=== PATIENT | female | born 1965 | race Caucasian/White ===

== ENCOUNTER → 2016-05-28 | Outpatient (CLI) | payer BC ==
--- NOTE | 2016-05-28 18:03 | Diagnostic Imaging Report ---
EXAMINATION: Transabdominal and transvaginal pelvic ultrasound. INDICATION: Abnormal uterine bleeding. FINDINGS: The uterus is 9.7 x 5.1 x 5 cm. The endometrial stripe is 4 mm in caliber. The myometrium is slightly heterogenous with no discrete lesion seen. The ovaries are obscured by bowel gas. IMPRESSION: Slightly heterogenous myometrium with no discrete lesion. Dictated by: Dictated on workstation # [id number]
== END ==
LOC: RAD 16:18
PROVIDERS: ATTEND Nurse Practitioner
DX: N93.8 Other specified abnormal uterine and vaginal bleeding (principal); N92.0 Excessive and frequent menstruation with regular cycle; N94.6 Dysmenorrhea, unspecified
CPT/HCPCS: 76830; 76856

== ENCOUNTER → 2016-06-30 | Outpatient (CLI) | payer BC ==
--- OUTSIDE RECORDS SUMMARY | 2016-06-30 13:53 | XMS REPORT | Continuity of Care Document ---
Author Author [facility] Organization [facility] Address Unknown Phone Unavailable Allergies Active Description Code Type Severity Reaction Onset Reported/Identified Relationship to Patient Clinical Status Yes No Known Drug Allergies [id number] Drug Allergy Unknown N/ A 10/03/2010 Medications Problems Date Dx Coded Attending Type Code Diagnosis Diagnosed By 01/01/2012 Ot 414.01 CORONARY ATHEROSCLEROSIS OF [place] CORON 01/01/2012 Ot 780.79 OTH MALAISE FATIGUE 01/01/2012 Ot 786.59 CHEST PAIN NEC 01/01/2012 Ot 794.30 ABN CARDIOVASC STUDY NOS 01/01/2012 Ot V17.49 FAMILY HISTORY OF OTHER CARDIOVASCULAR D 04/24/2014 [facility] Ot 611.72 04/04/2015 Ot V76.12 04/04/2015 Ot 789.04 04/04/2015 Ot 620.2 04/04/2015 Ot 621.30 04/04/2015 Ot 789.04 04/04/2015 Ot 620.2 04/04/2015 Ot 455.0 04/04/2015 Ot 455.3 04/04/2015 Ot 620.2 04/04/2015 Ot 611.1 04/04/2015 Ot 786.50 04/04/2015 Ot V17.3 04/04/2015 Ot 786.50 04/04/2015 Ot V17.3 04/04/2015 Ot V76.12 04/04/2015 Ot 610.0 04/04/2015 [facility] Ot 621.2 04/04/2015 [facility] [place] [facility] Ot 625.3 04/04/2015 [facility] [place] [facility] Ot 793.82 04/04/2015 [facility] [place] [facility] Ot V76.12 04/04/2015 [facility] [place] [facility] Ot 610.0 04/04/2015 [facility] Ot 793.82 04/04/2015 [facility] [place] [facility] Ot 621.2 04/04/2015 QUICK, GO APONTEP Ot 611.72 04/08/2015 Ot V76.12 04/08/2015 Ot 789.04 04/08/2015 Ot 620.2 04/08/2015 Ot 621.30 04/08/2015 Ot 789.04 04/08/2015 Ot 620.2 04/08/2015 Ot 455.0 04/08/2015 Ot 455.3 04/08/2015 Ot 620.2 04/08/2015 Ot 611.1 04/08/2015 Ot 786.50 04/08/2015 Ot V17.3 04/08/2015 Ot 786.50 04/08/2015 Ot V17.3 04/08/2015 Ot V76.12 04/08/2015 Ot 610.0 04/08/2015 QUICK, [facility] Ot 621.2 04/08/2015 QUICK, [facility] Ot 625.3 04/08/2015 QUICK, [facility] Ot 793.82 04/08/2015 QUICK, GO APONTEP Ot V76.12 04/08/2015 QUICK, [facility] Ot 610.0 04/08/2015 QUICK, [facility] Ot 793.82 04/08/2015 QUICK, GO APONTEP Ot 621.2 04/08/2015 QUICK, [facility] Ot 611.72 04/23/2015 QUICK, [facility] Ot Z12.31 05/28/2016 Ot 620.2 OVARIAN CYST NEC/NOS 05/28/2016 Ot 611.1 HYPERTROPHY OF BREAST 05/28/2016 Ot 786.50 CHEST PAIN NOS 05/28/2016 Ot V17.3 FAM HX-[facility] HEART DIS 05/28/2016 Ot 786.50 CHEST PAIN NOS 05/28/2016 Ot V17.3 FAM HX-[place] HEART DIS 05/28/2016 Ot V76.12 OTH SCREEN MAMMO-MALIGN NEOPLASM OF BEAN 05/28/2016 Ot 610.0 SOLITARY CYST OF BREAST 05/28/2016 QUICK, [facility] Ot 621.2 HYPERTROPHY OF UTERUS 05/28/2016 QUICK, [facility] Ot 625.3 DYSMENORRHEA 05/28/2016 QUICK, [facility] Ot 793.82 INCONCLUSIVE MAMMOGRAM 05/28/2016 [facility] Ot V76.12 OTH SCREEN MAMMO-MALIGN NEOPLASM OF BEAN 05/28/2016 [facility] Ot 610.0 SOLITARY CYST OF BREAST 05/28/2016 [facility] Ot 793.82 INCONCLUSIVE MAMMOGRAM 05/28/2016 [facility] Ot 621.2 HYPERTROPHY OF UTERUS 05/28/2016 [facility] Ot 611.72 LUMP OR MASS IN BREAST 05/28/2016 [facility] Ot Z12.31 ENCNTR SCREEN MAMMOGRAM FOR MALIGNANT NE 05/29/2016 [facility] Ot N92.0 EXCESSIVE AND FREQUENT MENSTRUATION WITH 05/29/2016 [facility] Ot N93.8 OTHER SPECIFIED ABNORMAL UTERINE AND VAG 05/29/2016 [facility] Ot N94.6 DYSMENORRHEA, UNSPECIFIED 06/11/2016 [facility] Ot N92.0 EXCESSIVE AND FREQUENT MENSTRUATION WITH 06/11/2016 [facility] Ot N93.8 OTHER SPECIFIED ABNORMAL UTERINE AND VAG 06/11/2016 [facility] Ot N94.6 DYSMENORRHEA, UNSPECIFIED Procedures Results Encounters ACCT No. Visit Date/Time Discharge Status Pt. Type Provider Facility Loc./Unit Complaint [id number] 04/04/2014 10:18:00 2013 23:59:59 CLS Outpatient KATEYNITZAAditya [facility] RAD BREAST MASS [id number] 03/27/2013 12:21:00 2012 23:59:59 CLS Outpatient [facility]ATEY [facility] RAD ABNORMAL MAMMO [id number] 03/23/2013 09:10:00 2012 23:59:59 CLS Outpatient [facility] RAD HYPERTROPHY OF UTERUS [id number] 03/10/2013 10:22:00 2012 23:59:59 CLS Outpatient [facility] RAD SCRENNING,MENORRHALGIA [id number] 05/28/2016 16:18:00 ACT Outpatient NITZA DEL [facility] Karthik EDWARD [facility] RAD DUB,MENORRHAGIA,DYSMENORRHEA [id number] 04/08/2015 10:33:00 ACT Outpatient KATEYNITZAAditya LEON [facility] RAD SCREENING [id number] 03/22/2012 07:30:00 Document Registration [id number] 03/08/2012 11:33:00 Document Registration [id number] 01/01/2012 09:34:00 Document Registration [id number] 12/29/2011 11:11:00 Document Registration [id number] 12/07/2011 12:14:00 Document Registration [id number] 02/25/2011 07:59:00 Document Registration [id number] 01/15/2011 11:49:00 Document Registration [id number] 10/03/2010 09:02:00 Document Registration [id number] 09/19/2010 12:06:00 Document Registration [id number] 2010 07:48:00 Document Registration [id number] 09/01/2010 12:47:00 Document Registration [id number] 02/21/2010 07:30:00 Document Registration
--- NOTE | 2016-07-02 19:52 | Diagnostic Imaging Report ---
Bilateral screening mammogram The current study was also evaluated with a Computer Aided Detection (CAD) system. Indication: Screening. No current complaints stated on the questionnaire. COMPARISON: 04/08/15. FINDINGS: The breasts are composed of heterogeneously dense parenchyma which may decrease mammographic sensitivity. There is a circumscribed mass seen in the central upper aspect of the left breast slightly more prominent in the current mammogram in comparison to the 2015 exam but is decreased in size from 2014. There is also another circumscribed nodule stable from multiple prior exams in the inferior aspect of the left breast. These are compatible with cysts as confirmed with previous ultrasound. The right breast demonstrates no definite change. IMPRESSION: Nodules in the left breast demonstrate minimal changes from multiple prior exams with previously documented cysts on prior left breast ultrasounds. The circumscribed margins are consistent with a cyst as well with no definite suspicious mass seen. Dense breasts. ACR BI-RADS Category 2: Benign findings. Result letter will be mailed to the patient. Note: At least 10% of breast cancer is not imaged by mammography. Dictated by: Dictated on workstation # [id number]
== END ==
LOC: RAD 13:50
PROVIDERS: ATTEND Nurse Practitioner
DX: Z12.31 Encounter for screening mammogram for malignant neoplasm of breast (principal)
CPT/HCPCS: 77067

== ENCOUNTER 2016-09-04 12:20 | Outpatient (CLI) | payer BC ==
[~2016-09-04] VITALS: Ht 170.2 cm; Wt 75.3 kg
[2016-09-04 12:28] VITALS: BP 126/73
[2016-09-04 13:01] LABS: BASOPHILS % (AUTO) 1 % (0-10); EOSINOPHILS # (AUTO) 0.2 10^3/uL (0.0-0.3); EOSINOPHILS % (AUTO) 4 % (0-10); LYMPHOCYTES # (AUTO) 2.3 X 10^3 (1.0-4.0); LYMPHOCYTES % (AUTO) 39 % (12-44); MEAN CORPUSCULAR HEMOGLOBIN 29 PG (25-34); MEAN CORPUSCULAR HGB CONC 34 G/DL (32-36); MEAN CORPUSCULAR VOLUME 86 FL (80-99); MEAN PLATELET VOLUME 11.6 FL (7.4-10.4); MONOCYTES # (AUTO) 0.4 X 10^3 (0.0-1.0); MONOCYTES % (AUTO) 7 % (0-12); NEUTROPHILS # (AUTO) 2.8 X 10^3 (1.8-7.8); NEUTROPHILS % (AUTO) 49 % (42-75); PLATELET COUNT 222 10^3/uL (130-400); RED BLOOD COUNT 4.59 10^6/uL (4.35-5.85); RED CELL DISTRIBUTION WIDTH 14.2 % (10.0-14.5); WHITE BLOOD COUNT 5.8 10^3/uL (4.3-11.0)
== END 2016-09-04 12:40 | disposition home or self-care (01) ==
LOC: PREOP 12:20
PROVIDERS: ATTEND Obstetrics & Gynecology
DX: Z01.812 Encounter for preprocedural laboratory examination (principal); Z11.2 Encounter for screening for other bacterial diseases; N92.0 Excessive and frequent menstruation with regular cycle
CPT/HCPCS: 36415; 85025; 86850; 86900; 86901; 87081

== ENCOUNTER 2016-09-09 06:00 | Day surgery (SDC) | payer BC ==
[~2016-09-09] VITALS: Ht 170.2 cm; Wt 75.3 kg
[2016-09-09 06:20] VITALS: BP 121/70
[2016-09-09] MEDS ORDERED: MIDAZOLAM 2 MG/2 ML (VERSED) VIAL ONE (06:55)
[2016-09-09] MEDS ORDERED: ROCURONIUM 50 MG/5 ML (ZEMURON) VIAL IV ONE (06:55)
[2016-09-09] MEDS ORDERED: fentaNYL INJECTION 100 MCG/2 ML AMP ONE ×2 (06:55→09:04)
[2016-09-09] MEDS ORDERED: proPOfol 200 MG/20 ML (DIPRIVAN) VIAL IV ONE (06:55)
[2016-09-09] MEDS: LACTATED RINGERS 1,000 ML IV PRN ×2 (07:34→09:13)
[2016-09-09] MEDS ORDERED: BUP/EPI 0.25% 1:200,000 (MARCAINE) 30 ML VIAL ONE (07:36)
--- NOTE | 2016-09-09 07:42 | Progress Note-Pre Operative ---
Pre-Operative Progress Note H&P Reviewed The H&P was reviewed, patient examined and no changes noted. Date H&P Reviewed: September 09, 2016 Time H&P Reviewed: 07:40 Pre-Operative Diagnosis: Abnormal uterine bleeding, menorrhagia, ovarian cancer risk reduction SHANA YU MD September 09, 2016 07:42
[2016-09-09] MEDS ORDERED: IBUP-1773 PO (07:43)
[2016-09-09] MEDS ORDERED: HYDR-3729 PO (07:43)
[2016-09-09] MEDS ORDERED: DOCU-143 PO (07:43)
--- NOTE | 2016-09-09 07:45 | Discharge Inst-Women's Service ---
Discharge Inst-Women's Serv Depart Medication/Instructions New, Converted or Re-Newed RX: RX on Chart (and transmitted to pharmacy) Final Diagnosis Abnormal uterine bleeding, menorrhagia, ovarian cancer risk reduction Consults/Follow Up Additional Follow Up: Yes Orders/Referrals 2-[address] Carolina Activity Driving Instructions: No Driving for 24 Hours (or while taking narcotic pain medications) NO SMOKING: NO SMOKING Nothing Inside Vagina: No Douching, No Gans, No Tampons Other Activity No strenuous activity or lifting > 10 lb for 2 weeks No sex, douching, tampons, anything in the vagina for one week Diet Discharge Diet: No Restrictions Symptoms to Report to DrMelissa: Bleeding Excessive, Pain Increased, Fever Over 101 Degrees F, Pain/Pressure in Chest, Vaginal Bleeding Increase, Dizziness/Fainting , Nausea/Vomiting, Shortness of Breath For Any Problems or Questions: Contact Your Physician, Go to Emergency Room Skin/Wound Care Infection Signs and Symptoms: Increased Redness, Foul Odor of Wound, Increased Drainage Operative Area Clean and Dry: Keep Incision Clean/Dry Stitches/[place]/Dermabond: Dermabond, Care of Stitches Bathing Instructions: SHANA Han MD September 09, 2016 07:45
[2016-09-09] MEDS ORDERED: LACTATED RINGERS 2,000 ML IV ONE (08:56)
[2016-09-09] MEDS ORDERED: SEVOFLURANE (ULTANE) 15 ML INHAL SOLN ONE (08:56)
[2016-09-09] MEDS ORDERED: KETOROLAC 30 MG/ML VIAL ONE (08:56)
[2016-09-09] MEDS ORDERED: ONDANSETRON 4 MG/2 ML (SDV) Z0FRAN ONE (08:56)
[2016-09-09] MEDS ORDERED: D5 LR IV SOLUTION 1,000 ML IV SCH (09:13)
--- NOTE | 2016-09-09 09:13 | Progress Note-Post Operative ---
Post-Operative Progess Note Surgeon (s)/Hotbed Operator (s) Surgeon SHANA YU MD Hotbed Operator: Deja Causey APRN who was necessary for the procedure for retraction Pre-Operative Diagnosis Abnormal uterine bleeding, menorrhagia, ovarian cancer risk reduction Post-Operative Diagnosis Same plus right ovarian cyst Procedure & Operative Findings Date of Procedure 09/09/16 Procedure Performed/Findings Operative laparoscopy, right oophorectomy, bilateral salpingectomy, hysteroscopy , Novasure endometrial ablation Anesthesia Type General Estimated Blood Loss Estimated blood loss (mL): Minimal Specimens/Packing Specimens Removed Bilateral tubes, right ovary, endometrial curettings to pathology SHANA YU MD September 09, 2016 09:13
[2016-09-09] MEDS ORDERED: ONDANSETRON 4 MG/2 ML (SDV) Z0FRAN IVP PRN ×2 (09:15→09:30)
[2016-09-09] MEDS ORDERED: HYDROmorphone (DILAUDID) 2 MG/ML VIAL IVP PRN (09:30)
[2016-09-09] MEDS ORDERED: morphine INJ 10 MG/ML 1ML (SYR OR VIAL) ONE (09:40)
[2016-09-09] MEDS: morphine INJ 10 MG/ML 1ML (SYR OR VIAL) IVP PRN ×2 (09:45→09:51)
--- NOTE | 2016-09-09 10:05 | OB/GYN Operative Report ---
Operative Report Date of Procedure: September 09, 2016 Preoperative Diagnosis: Abnormal uterine bleeding, menorrhagia, ovarian cancer risk reduction Postoperative Diagnosis: Same plus right ovarian cyst Procedure: Operative laparoscopy, right oophorectomy, bilateral salpingectomy, hysteroscopy, Novasure endometrial ablation Surgeon: Shana Carolina MD Assistants: Deja Causey APRN who was vital to the case for retraction of srivastava structures Anesthesia: General Estimated Blood Loss: Minimal Indications for Procedure: This is a 51 year old female with abnormal uterine bleeding (menorrhagia) who also desired ovarian cancer risk reduction. She was counseled on risks/benefits and alternatives. After normal ultrasound and endometrial biopsy, she elected to proceed. Findings: Normal appearing liver, stomach, bowel, bladder. 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 Right ovary with small (<1cm) calcified cyst. Bilateral tubes normal in appearance. No evidence of perforation following ablation. Fluid deficit of 240 mL of NS following ablation. Procedure: The patient was brought to the operating room. The patient was placed under general anesthesia by our anesthesia colleagues. A time out was performed. The patient was positioned in dorsal lithotomy with the use of stirrups. She was prepped and draped in the typical sterile fashion. A speculum was placed in the vagina. A single toothed tenaculum was placed on the anterior lip of the cervix. A coned canula was placed in the external os. A mejia catheter was placed in the bladder. Gloves were then changed and the attention was turned to the abdomen. An infraumbilical incision was made with a knife following injection of 0.25% marcaine and the Veress needle was introduced into the peritoneal cavity with an opening pressure of 4 mmHg. The abdomen was then insufflated to a pressure of 15 mm Hg with CO2 gas. The camera was introduced into the abdomen, confirming intraperitoneal placement and lack of operative injury to the stomach , bowel, vessels or omentum. One additional 5 mm port site was placed in the left lower quadrant under direct visualization, 2cm medial and 2 cm superior to the anterior superior iliac spine. We then turned our attention to the pelvis. The aforementioned findings were noted. I began the salpingectomy on the left, grasping the left tube for traction and using the ligasure device to perform a salpingectomy in the distal to proximal direction, ligating the tube finally at the cornua. The left ovary appeared normal. The tube was removed intact. I noted a right ovarian cyst and decided to proceed with right oophorectomy. The ureter was identified low in the pelvis. The right infundibulopelvic ligament was isolated and coagulated and transected, and the dissection was continued proximally until removing the tube at the cornua. The left trochar site was extended to 12 mm Hg and an endocatch bag was placed in the pelvis. The specimen was removed intact. The suction teacher dramatics was used to irrigate the pelvis; good hemostasis was noted. We then turned our attention to the vagina. The uterine manipulator was removed from the uterus. The uterus was sounded to 10cm. Patel dilators were used to dilate the cervix to 17mm. The Truclear 5 mm hysteroscope was then advanced into the uterine cavity under direct visualization. No intrinsic lesions were seen. The hysteroscope was removed. A sharp circumferential curettage was performed with a small sharp curette. The Novasure Suresound Uterine Sound was then utilized to measure the cervical length of 4cm and cavity length of 6cm. The Novasure device was then placed in the uterine cavity, and, once at the fundus, was retracted 5mm and the device was deployed. The device was rotated clockwise and counterclockwise until a stable cavity width of 3.4cm was noted. The cavity assessment was then undertaken and, once successfully completed, the Novasure device was utilized at a power of 116 for less than two minutes total. The device was then retracted and removed from the vagina. The hysteroscope was again utilized to view the cavity which appeared adequately ablated. All instruments were removed from the vagina; the anterior lip of the cervix was hemostatic after Allis removal. Gloves were changed. The camera was directed into the abdominal cavity again. Good hemostasis was again noted; no evidence of perforation. The Yousif Rich was used to close the left lower quadrant port site with 0-Vicryl. The gas was allowed to escape the abdomen. All ports were then removed from the abdomen under direct visualization and then finally the camera port was removed. The port sites were closed using dermabond. All instruments were removed from the vagina. The patient was brought to the recovery room in stable condition after awakening from general anesthesia. Sponge, lap and needle counts were correct x 3. Condition: Stable to recovery room SHANA CAROLINA MD September 09, 2016 10:05
[2016-09-09 10:15] VITALS: BP 113/65
[2016-09-09] MEDS ORDERED: HYDROcodone/APAP 5 MG/325 MG (LORTAB) TAB PO PRN (10:30)
[2016-09-09 10:45] VITALS: BP 112/61
[2016-09-09 11:15] VITALS: BP 106/58
== END 2016-09-09 12:05 | disposition home or self-care (01) ==
LOC: SDC 06:00
PROVIDERS: ATTEND Obstetrics & Gynecology
DX: N92.0 Excessive and frequent menstruation with regular cycle (principal); N80.3 Endometriosis of pelvic peritoneum; N83.291 Other ovarian cyst, right side; N84.1 Polyp of cervix uteri
CPT/HCPCS: 84703; 88305

== ENCOUNTER → 2017-07-13 | Outpatient (CLI) | payer BC ==
[~2017-07-13] MED LIST: DOCU-143 PO; HYDR-3729 PO; IBUP-1773 PO
--- NOTE | 2017-07-13 12:42 | Diagnostic Imaging Report ---
INDICATION: Routine screening. Comparison is made with prior mammogram from 06/30/2016 and 04/08/2015. The current study was also evaluated with a Computer Aided Detection (CAD) system. Both breasts are heterogeneously dense, limiting the sensitivity of mammography. The overall parenchymal pattern appears to be fairly stable. The previously seen rounded mass in the left breast just lateral to the nipple line on CC view has resolved consistent with resolving cyst. Nodular density in the inferior and slightly medial left breast is stable. No new mass is detected. No suspicious microcalcifications are seen. The axillae are unremarkable. IMPRESSION: BI-RADS category 2 No mammographic features suspicious for malignancy are identified. ACR BI-RADS Category 2: Benign findings. Result letter will be mailed to the patient. Note: At least 10% of breast cancer is not imaged by mammography. Dictated by: Dictated on workstation # [id number]
== END ==
LOC: RAD 08:13
PROVIDERS: ATTEND Nurse Practitioner
DX: Z12.31 Encounter for screening mammogram for malignant neoplasm of breast (principal)
CPT/HCPCS: 77067

== ENCOUNTER → 2018-04-13 | Outpatient (CLI) | payer BC ==
--- NOTE | 2018-04-13 13:03 | Diagnostic Imaging Report ---
PROCEDURE: MRI left upper extremity without contrast. TECHNIQUE: Multiplanar, multisequence non contrast-enhanced MRI of the left upper extremity was accomplished. INDICATION: Injury to the left thumb left thumb pain. FINDINGS: An oil marker was placed at the area of pain in left thumb. This corresponds to the first MTP joint. The marrow signal intensity of the first met carpal as well as the proximal and distal phalanges appears normal. No definite marrow edema or fracture is seen. The flexor and extensor tendons of the thumb appear to be intact. There appears to be minimal edema adjacent to the first MCP joint along the ulnar side at the area of patient's pain. There appears to be some signal associated with the collateral ligament as well which is not well seen at the phalangeal attachment and could be torn. The collateral ligament along the radial side appears to be intact. Collateral ligaments at the interphalangeal joint appear intact. No other abnormality is seen. IMPRESSION: Findings suspicious for a collateral ligament injury at the first MCP joint, ulnar side, as described. No other abnormality is seen. Dictated by: Dictated on workstation # [id number]
== END ==
LOC: RAD 11:46
PROVIDERS: ATTEND Orthopaedic Surgery
DX: S53.32XA Traumatic rupture of left ulnar collateral ligament, initial encounter (principal)
CPT/HCPCS: 73221

== ENCOUNTER → 2018-11-02 | Outpatient (CLI) | payer BC ==
--- NOTE | 2018-11-02 10:35 | Diagnostic Imaging Report ---
INDICATION: Routine screening. COMPARISON: 07/13/2017 and 06/30/2016. TECHNIQUE: 2D and 3D bilateral screening mammography was performed with CAD. FINDINGS: Both breasts remain heterogeneously dense, limiting the sensitivity of mammography. The nodular density in the retroareolar and medial left breast is stable. No new mass or malignant appearing microcalcifications are seen. The axillae are unremarkable. IMPRESSION: No mammographic features suspicious for malignancy are identified. ACR BI-RADS Category 2: Benign findings. Result letter will be mailed to the patient. Note: At least 10% of breast cancer is not imaged by mammography. Dictated by: Dictated on workstation # [id number]
== END ==
LOC: RAD 07:32
PROVIDERS: ATTEND Nurse Practitioner
DX: Z12.31 Encounter for screening mammogram for malignant neoplasm of breast (principal); Z01.419 Encounter for gynecological examination (general) (routine) without abnormal findings; N95.2 Postmenopausal atrophic vaginitis
CPT/HCPCS: 77067

== ENCOUNTER → 2019-03-15 | Outpatient (CLI) | payer BC ==
--- NOTE | 2019-03-15 13:38 | Diagnostic Imaging Report ---
PROCEDURE: CT abdomen and pelvis without contrast. TECHNIQUE: Multiple contiguous axial images were obtained through the abdomen and pelvis without the use of intravenous contrast. Auto Exposure Controls were utilized during the CT exam to meet ALARA standards for radiation dose reduction. INDICATION: Hematuria. COMPARISON: None. FINDINGS: Included portions of the lung bases show multiple micronodular densities within the inferior lingula of the left upper lobe. Largest of these measures 7 mm in diameter (image 4, series 2). CT ABDOMEN: Small bowel loops are nondistended. Normal appendix is identified. Hypodense left renal cyst is noted. Otherwise, the kidneys, adrenal glands, spleen, pancreas, and liver have an unremarkable noncontrast CT appearance. There is no loculated fluid collection, free fluid, nor free air within the abdomen. No abnormal mesenteric or retroperitoneal adenopathy is seen. Osseous structures show no acute abnormalities. CT PELVIS: Urinary bladder is unopacified and nondistended. There is no loculated fluid collection, free fluid, nor free air within the pelvis. No abnormal adenopathy is seen. Osseous structures show no acute abnormalities. IMPRESSION: 1. Unremarkable noncontrast CT of the abdomen and pelvis. 2. Left lingular micronodules, which are new since previous exam. Please see below for follow-up recommendations. PULMONARY NODULE FOLLOW-UP Multiple nodules: <6 mm: * Low risk patient - no routine follow up * High risk patient - optional CT at 12 months 6-8 mm in size: * Low risk patient - Ct at 3-6 months, then consider CT at 18-24 months * High risk patient - CT at 3-6 months, then at 18-24 months >8 mm: * Low risk patient - CT at 3-6 months, then consider CT at 18-24 months * High risk patient - CT at 3-6 months, then at 18-24 months (Use most suspicious nodule as guide to management. Follow up interval may vary according to size and risk) Dictated by: Dictated on workstation # [id number]
== END ==
LOC: RAD 12:57
PROVIDERS: ATTEND Nurse Practitioner
DX: R31.9 Hematuria, unspecified (principal); R91.8 Other nonspecific abnormal finding of lung field
CPT/HCPCS: 74176

== ENCOUNTER → 2019-03-21 | Outpatient (CLI) | payer BC ==
[~2019-03-21] MED LIST changes: +CATHETER FLUSH 10 ML SYR IV PRN; +HOLD METFORMIN - RECEIVED CONTRAST 20 ML VIAL IV SCH; +IOHEXOL 350 MG/ML 100 ML (OMNIPAQUE 350) VIAL IV ONE; +NS 100 ML (IVPB) BAG IV ONE
--- NOTE | 2019-03-21 16:40 | Diagnostic Imaging Report ---
PROCEDURE: CT chest with contrast only. TECHNIQUE: Multiple contiguous axial images were obtained through the chest after administration of intravenous contrast. Auto Exposure Controls were utilized during the CT exam to meet ALARA standards for radiation dose reduction. INDICATION: Pulmonary micronodules are noted on recent CT abdomen and pelvis. Study is performed for further evaluation. COMPARISON: Correlation is made with CT abdomen and pelvis from 03/15/2019. No axillary lymphadenopathy is detected. No mediastinal or hilar lymphadenopathy is detected. No pericardial or pleural fluid is identified. A 6-7 mm nodule in the lingula and adjacent 3 mm subpleural nodule in the lingula are again noted and similar to recent exam. No additional pulmonary nodules are identified. No infiltrates are seen. Upper abdomen is unremarkable. IMPRESSION: Pulmonary micronodules in the lingula, as described. Recommendations remain as per CT abdomen and pelvis report for follow-up. No thoracic lymphadenopathy is seen. No acute features identified. Dictated by: Dictated on workstation # [id number]
== END ==
LOC: RAD 14:17
PROVIDERS: ATTEND Nurse Practitioner Family
DX: R05 Cough (principal); R91.8 Other nonspecific abnormal finding of lung field
CPT/HCPCS: 71260

== ENCOUNTER → 2019-11-06 | Outpatient (CLI) | payer BC ==
[~2019-11-06] MED LIST changes: -CATHETER FLUSH 10 ML SYR IV PRN; -HOLD METFORMIN - RECEIVED CONTRAST 20 ML VIAL IV SCH; -IOHEXOL 350 MG/ML 100 ML (OMNIPAQUE 350) VIAL IV ONE; -NS 100 ML (IVPB) BAG IV ONE
--- NOTE | 2019-11-06 09:53 | Diagnostic Imaging Report ---
INDICATION: Routine screening. Comparison is made with prior mammogram from 11/02/2018 and 07/13/2017. 2-D and 3-D bilateral screening mammography was performed with CAD. Both breasts are heterogeneously dense, limiting the sensitivity of mammography. A density in the retroareolar and medial left breast appears stable. No dominant mass or malignant appearing microcalcifications are seen. Axillae are unremarkable. IMPRESSION: BI-RADS Category 2 No mammographic features suspicious for malignancy are identified. ACR BI-RADS Category 2: Benign findings. Result letter will be mailed to the patient. Note: At least 10% of breast cancer is not imaged by mammography. Dictated by: Dictated on workstation # [id number]
== END ==
LOC: RAD 07:32
PROVIDERS: ATTEND Surgery
DX: Z12.31 Encounter for screening mammogram for malignant neoplasm of breast (principal)
CPT/HCPCS: 77063; 77067

== ENCOUNTER → 2020-05-08 | Outpatient (CLI) | payer BC ==
--- NOTE | 2020-05-08 09:09 | Diagnostic Imaging Report ---
PROCEDURE: CT chest without contrast. TECHNIQUE: Multiple contiguous axial images were obtained through the chest without the use of intravenous contrast. Auto Exposure Controls were utilized during the CT exam to meet ALARA standards for radiation dose reduction. INDICATION: Pulmonary nodule. Compared with chest CT 03/21/2019. FINDINGS: Prior micronodular densities in the caudal aspect of the lingular segment of the left upper lobe posteriorly have resolved in the interim. No residual new dominant or suspicious pulmonary nodule. No thoracic lymphadenopathy. The aorta is normal in caliber. No findings of pneumonia, effusion or pneumothorax. No acute chest wall pathology. The visualized upper abdomen showed no acute pathology. IMPRESSION: Clear chest on followup, no acute or suspicious finding, no further workup needed. Dictated by: Dictated on workstation # [id number]
== END ==
LOC: RAD 08:31
PROVIDERS: ATTEND Family Medicine
DX: R91.1 Solitary pulmonary nodule (principal)
CPT/HCPCS: 71250

== ENCOUNTER → 2020-08-19 | Outpatient (CLI) | payer BC ==
--- NOTE | 2020-08-19 13:22 | Diagnostic Imaging Report ---
PROCEDURE: CT head without contrast. TECHNIQUE: Multiple contiguous axial images were obtained through the brain without the use of intravenous contrast. Auto Exposure Controls were utilized during the CT exam to meet ALARA standards for radiation dose reduction. INDICATION: Frontal headache. COMPARISON: There are no prior studies available for comparison. FINDINGS: There is no mass, shift of the midline, or hemorrhage to suggest an acute intracranial abnormality. The ventricles are not abnormally dilated. 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 There also appears to be a basal ganglia calcification on the left. This, too, is felt to be a developmental variant. The bone windows show no evidence for a fracture or for a destructive lesion. The orbits are symmetrical and within normal limits. The sinuses are generally clear. IMPRESSION: 1. There is no evidence for an acute intracranial abnormality. There is no sign of a mass lesion either. 2. If clinical concern regarding an underlying abnormality persists, then MRI would be recommended for further evaluation. Dictated by: Dictated on workstation # [id number]
== END ==
LOC: RAD 12:21
PROVIDERS: ATTEND Family Medicine
DX: R51.9 Headache, unspecified (principal)
CPT/HCPCS: 70450

== ENCOUNTER → 2020-11-28 | Outpatient (CLI) | payer BC ==
--- NOTE | 2020-11-28 11:43 | Diagnostic Imaging Report ---
INDICATION: Routine screening. COMPARISON is made with prior mammograms from 11/06/2019 and 11/02/2018. 2-D and 3-D bilateral screening mammography was performed with CAD. Both breasts are heterogeneously dense, limiting the sensitivity of mammography. A retroareolar density inferior and medial on the left is stable. No new mass or malignant-appearing microcalcifications are seen. Axillae are unremarkable. IMPRESSION: BI-RADS Category 2 No mammographic features suspicious for malignancy are identified. Dictated by: Dictated on workstation # [id number]
== END ==
LOC: RAD 07:30
PROVIDERS: ATTEND Surgery
DX: Z12.31 Encounter for screening mammogram for malignant neoplasm of breast (principal)
CPT/HCPCS: 77063; 77067

== ENCOUNTER → 2021-03-31 | Outpatient (CLI) | payer BC ==
[~2021-03-31] MED LIST changes: +GADOTERATE 0.5 MMOL/ML (CLARISCAN) 15 ML VIAL IV ONE
--- NOTE | 2021-03-31 10:14 | Diagnostic Imaging Report ---
PROCEDURE: MR imaging of the brain with and without contrast. TECHNIQUE: Multiplanar, multisequence MR imaging of the brain was performed with and without contrast. INDICATION: Headaches. COMPARISON: CT head on 08/19/2020. FINDINGS: No acute ischemia, mass, or hemorrhage. No abnormal enhancement. Scattered chronic microvascular disease is seen in the subcortical white matter in the bilateral cerebral hemispheres. The ventricles, cortical sulci, and basilar cisterns are symmetric and unremarkable. The sellar and suprasellar regions have a normal appearance. The brainstem and posterior fossa are unremarkable. Mild mucosal thickening is seen in the bilateral maxillary and ethmoid sinuses. Right-sided mastoid effusion is present. The globes and orbits are symmetric and unremarkable. The scalp and calvarium have a normal appearance. IMPRESSION: 1. No acute ischemia, mass, or hemorrhage. No abnormal enhancement. 2. Scattered chronic microvascular disease in the bilateral cerebral hemispheres. 3. Mucosal thickening in the bilateral maxillary and ethmoid sinuses. Small right-sided mastoid effusion. Dictated by: Dictated on workstation # [id number]
== END ==
LOC: RAD 08:45
PROVIDERS: ATTEND Otolaryngology Otolaryngology/Facial Plastic Surgery
DX: I67.82 Cerebral ischemia (principal); J32.0 Chronic maxillary sinusitis; J32.2 Chronic ethmoidal sinusitis; H74.8X1 Other specified disorders of right middle ear and mastoid
CPT/HCPCS: 70553

== ENCOUNTER → 2021-12-16 | Outpatient (CLI) | payer BC ==
[~2021-12-16] MED LIST changes: -GADOTERATE 0.5 MMOL/ML (CLARISCAN) 15 ML VIAL IV ONE
--- NOTE | 2021-12-16 15:10 | Diagnostic Imaging Report ---
Indication: Routine screening. Comparison is made with prior mammogram from 11/28/2020 11/06/2019. 2-D and 3-D bilateral screening mammography was performed with CAD. CAD is utilized. The current study was also evaluated with a Computer Aided Detection (CAD) system. Both breasts are heterogeneously dense, limiting the sensitivity of mammography. A retroareolar density on the left appears stable. No new mass or malignant-appearing microcalcifications are seen. Axillae are unremarkable. IMPRESSION: BI-RADS Category 2 No mammographic features suspicious for malignancy are identified. ACR BI-RADS Category 2: Benign findings. Result letter will be mailed to the patient. Note: At least 10% of breast cancer is not imaged by mammography. Dictated by: Dictated on workstation # [id number]
== END ==
LOC: RAD 11:11
PROVIDERS: ATTEND Surgery
DX: Z12.31 Encounter for screening mammogram for malignant neoplasm of breast (principal)
CPT/HCPCS: 77063; 77067

== ENCOUNTER → 2021-12-18 | Outpatient (CLI) | payer BC ==
[~2021-12-18] MED LIST changes: +CATHETER FLUSH 10 ML SYR IV PRN; +HOLD METFORMIN - RECEIVED CONTRAST 20 ML VIAL IV SCH; +IOHEXOL 350 MG/ML 100 ML (OMNIPAQUE 350) VIAL IV ONE; +NS 100 ML (IVPB) BAG IV ONE
--- NOTE | 2021-12-18 14:05 | Diagnostic Imaging Report ---
PROCEDURE: CT abdomen and pelvis with contrast. TECHNIQUE: Multiple contiguous axial images were obtained through the abdomen and pelvis after administration of intravenous contrast. Auto Exposure Controls were utilized during the CT exam to meet ALARA standards for radiation dose reduction. All CT scans use one or more of the following dose optimizing techniques: automated exposure control, MA and/or KvP adjustment based on patient size and exam type or iterative reconstruction. INDICATION: 56-year-old female, midabdominal pain. Bilateral posterior pain x3 days. CORRELATION STUDY: CT abdomen and pelvis from 03/15/2019. FINDINGS: LOWER THORAX: Clear. LIVER: Unremarkable. GALLBLADDER: Cholecystectomy. No overt bile duct dilatation. SPLEEN: Unremarkable. PANCREAS: Unremarkable. ADRENAL GLANDS: Unremarkable. KIDNEYS: Small exophytic cyst in the inferior pole of the left kidney. Otherwise, normal enhancement. No obstruction. ABDOMINAL AORTA: Unremarkable, nonaneurysmal. Slight asymmetric enhancement of a peripheral branch of the superior mesenteric vein into the SMV and portal vein. GASTROINTESTINAL TRACT: Stomach is with small amount of fluid and gas, not overtly distended. There are prominent fluid-filled loops of small bowel with gas. Some slight change in caliber in the right midabdomen with what appears to be slightly tethered appearance, may be reflective of some adhesions. Question partial obstructive or inflammatory process. High-degree obstruction however does not appear to be present. There is some gas and stool through the colon. Normal appendix is present. No ascites. URINARY BLADDER: Unremarkable. REPRODUCTIVE: Uterus and adnexa are unremarkable. OSSEOUS STRUCTURES: No acute abnormality. OTHER: None. IMPRESSION: 1. Slightly tethered appearance about the small bowel at the central aspect of the mesentery with slight inflammatory appearance. It could be reflective of potential enteritis or possibility of adhesions with partial obstruction. 2. Very slight asymmetric enhancement of a tributary vein into the superior mesenteric vein and portal vein. May simply be owing to phase of contrast bolus enhancement. Filling defects with very mild early partial thrombus however is not excluded on this CT study. Short-term follow-up repeat imaging is recommended for reassessment. Dictated by: Dictated on workstation # [id number]
== END ==
LOC: RAD 13:00
PROVIDERS: ATTEND Surgery
DX: R10.9 Unspecified abdominal pain (principal); M54.9 Dorsalgia, unspecified; Z90.49 Acquired absence of other specified parts of digestive tract
CPT/HCPCS: 74177

== ENCOUNTER → 2021-12-30 | Outpatient (CLI) | payer BC ==
--- NOTE | 2021-12-30 12:20 | Diagnostic Imaging Report ---
PROCEDURE: CT abdomen and pelvis with contrast. TECHNIQUE: Multiple contiguous axial images were obtained through the abdomen and pelvis after administration of intravenous contrast. Auto Exposure Controls were utilized during the CT exam to meet ALARA standards for radiation dose reduction. All CT scans use one or more of the following dose optimizing techniques: automated exposure control, MA and/or KvP adjustment based on patient size and exam type or iterative reconstruction. INDICATION: Abdominal pain. COMPARISON: 12/18/2021. FINDINGS: The gallbladder is surgically absent. There is no pathological biliary dilatation. The liver, spleen, adrenals, and pancreas are unremarkable. The kidneys are unobstructed and nonacute with a simple exophytic left lower pole renal cortical cyst, chronic. The air-containing appendix is well visualized and normal. There is no small or large bowel obstruction. There is no abnormal fecal loading. There is no ascites, abscess, hematoma, or acute fluid collection. There is a tiny chronic noninflamed fatty umbilical hernia. No acute appearing abdominal wall pathology. The lung bases and bony structures are nonacute. IMPRESSION: Stable unremarkable abdominal/pelvic CT with no obstructive features, inflammatory processes, or acute appearing abnormalities. Dictated by: Dictated on workstation # [id number]
== END ==
LOC: RAD 10:02
PROVIDERS: ATTEND Surgery
DX: R10.9 Unspecified abdominal pain (principal)
CPT/HCPCS: 74177

== ENCOUNTER 2022-04-03 11:59 | Emergency (ER) | payer BC ==
[~2022-04-03] VITALS: Ht 170.2 cm; Wt 72.6 kg
[~2022-04-03 11:59] MED LIST changes: -CATHETER FLUSH 10 ML SYR IV PRN; -HOLD METFORMIN - RECEIVED CONTRAST 20 ML VIAL IV SCH; -IOHEXOL 350 MG/ML 100 ML (OMNIPAQUE 350) VIAL IV ONE; -NS 100 ML (IVPB) BAG IV ONE
--- NOTE | 2022-04-03 13:09 | ED General ---
General Chief Complaint: General Problems/Pain Stated Complaint: DIARRHEA/WEAKNESS Nursing Triage Note: PT AMB TO TRIAGE W C/O DIARRHEA, WEAKNESS, DECREASED APPETITE SX 03/31/22. PT A&OX4. Source of Information: Patient Exam Limitations: No Limitations History of Present Illness Date Seen by Provider: Apr 03, 2022 Time Seen by Provider: 13:09 Initial Comments Patient is a 56-year-old female who presents to the emergency room chief compl aint generalized weakness, not feeling well, nausea and diarrhea. Patient states that she has had intermittent bouts of abdominal pain, nausea vomiting and diarrhea since December. She saw Marlene DEL TORO NP back in December and had CT scans of the abdomen and pelvis that were unremarkable for any acute pathology. She did have a round of antibiotics at that time for similar complai nts. Her only prior surgeries have been cholecystectomy and uterine ablation. She denies black or bloody stool. She occasionally has blood in her urine. No known fevers or chills. One of her grandsons had flulike symptoms a week ago. She is flu and COVID vaccinated. She takes no daily medications. No allergies to medications. She denies feeling lightheaded or dizzy when she stands up. She feels generally weak. She has mid abdominal pain around the umbilicus. Movement makes it worse and she has no appetite. Timing/Duration: 2-3 Days Severity: Moderate Associated Systoms: Loss of Appetite, Malaise, Weakness Allergies and Home Medications Allergies Coded Allergies: No Known Drug Allergies (Unverified , 10/03/10) Patient Home Medication List Home Medication List Reviewed: Yes Docusate Sodium (Colace) 100 Mg Capsule, 100 MG PO BID PRN for CONSTIPATION-1ST LINE Prescribed by: SHANA YU on 09/09/1643 Hydrocodone/Acetaminophen (Lortab 5-325 mg Tablet) 1 Each Tablet, 1-2 EACH PO Q4H PRN for ABDOMINAL PAIN Prescribed by: SHANA YU on 09/09/16742 Ibuprofen (Ibuprofen) 600 Mg Tablet, 600 MG PO Q6H Prescribed by: SHANA YU on 09/09/16742 Review of Systems Review of Systems Constitutional: see HPI EENTM: no symptoms reported Respiratory: no symptoms reported Cardiovascular: no symptoms reported Gastrointestinal: diarrhea, loss of appetite, nausea Genitourinary: no symptoms reported Musculoskeletal: no symptoms reported Skin: no symptoms reported Psychiatric/Neurological: No Symptoms Reported All Other Systems Reviewed Negative Unless Noted: Yes Past Sjjuhlh-Vpgssz-Twmmru Hx Patient Social History Tobacco Use?: No Use of E-Cig and/or Vaping dev: No Substance use?: No Alcohol Use?: No Immunizations Up To Date Influenza Vaccine Up-to-Date: Yes; Up-to-Date First/Initial COVID19 Vaccinat: 2020 Second COVID19 Vaccination Doug: 2020 Third COVID19 Vaccination Date: 2021 COVID19 Vaccine Manager Of Housekeeping: MODERNA X3 Seasonal Allergies Seasonal Allergies: No Past Medical History Adenoidectomy, Gallbladder, Tonsillectomy Reproductive Disorders: Yes Physical Exam Vital Signs Vital Signs - First Documented 04/03/22 12:11 Temp 36.3 Pulse 62 Resp 20 B/P (MAP) 147/85 (105) Pulse Ox 99 O2 Delivery Room Air Capillary Refill : Less Than 3 Seconds Height, Weight, BMI Height: 5'7.00" Weight: 166lbs. 0.0oz. [id number]; 25.00 BMI Method: General Appearance: No Apparent Distress, WD/WN Eyes: Bilateral Eye Normal Inspection, Bilateral Eye PERRL, Bilateral Eye EOMI Neck: Normal Inspection, Supple Respiratory: Lungs Clear, Normal Breath Sounds, No Accessory Muscle Use, No Respiratory Distress Cardiovascular: Regular Rate, Rhythm Gastrointestinal: Tenderness (mid abdominal tenderness; no rebound. quiet bowel sounds) Extremity: Normal Capillary Refill, Normal Inspection, Normal Range of Motion, Non Tender, No Calf Tenderness, No Pedal Edema Neurologic/Psychiatric: Alert, Oriented x3, No Motor/Sensory Deficits, Normal Mood/Affect, air saw operator II-XII Norm as Tested Skin: Normal Color, Warm/Dry Progress/Results/Core Measures Suspected Sepsis SIRS Temperature: Pulse: 62 Respiratory Rate: 20 Laboratory Tests 04/03/22 12:55: White Blood Count 4.7 Blood Pressure 147 /85 Mean: 105 Laboratory Tests 04/03/22 12:55: Creatinine 0.89, Platelet Count 217, Total Bilirubin 1.5H Results/Orders Lab Results Laboratory Tests Test 04/03/22 12:55 04/03/22 14:25 Range/Units White Blood Count 4.7 4.3-11.0 10^3/uL Red Blood Count 5.07 3.80-5.11 10^6/uL Hemoglobin 14.5 11.5-16.0 g/dL Hematocrit 43 35-52 % Mean Corpuscular Volume 86 80-99 fL Mean Corpuscular Hemoglobin 29 25-34 pg Mean Corpuscular Hemoglobin Concent 33 32-36 g/dL Red Cell Distribution Width 13.2 10.0-14.5 % Platelet Count 217 130-400 10^3/uL Mean Platelet Volume 10.7 9.0-12.2 fL Immature Granulocyte % (Auto) 0 % Neutrophils (%) (Auto) 44 42-75 % Lymphocytes (%) (Auto) 41 12-44 % Monocytes (%) (Auto) 11 0-12 % Eosinophils (%) (Auto) 3 0-10 % Basophils (%) (Auto) 1 0-10 % Neutrophils # (Auto) 2.1 1.8-7.8 10^3/uL Lymphocytes # (Auto) 2.0 1.0-4.0 10^3/uL Monocytes # (Auto) 0.5 0.0-1.0 10^3/uL Eosinophils # (Auto) 0.1 0.0-0.3 10^3/uL Basophils # (Auto) 0.0 0.0-0.1 10^3/uL Immature Granulocyte # (Auto) 0.0 0.0-0.1 10^3/uL Sodium Level 140 135-145 MMOL/L Potassium Level 3.4 L 3.6-5.0 MMOL/L Chloride Level 104 98-107 MMOL/L Carbon Dioxide Level 26 21-32 MMOL/L Anion Gap 10 5-14 MMOL/L Blood Urea Nitrogen 12 7-18 MG/DL Creatinine 0.89 0.60-1.30 MG/DL Estimat Glomerular Filtration Rate 75 BUN/Creatinine Ratio 13 Glucose Level 87 70-105 MG/DL Calcium Level 9.5 8.5-10.1 MG/DL Corrected Calcium 8.5-10.1 MG/DL Total Bilirubin 1.5 H 0.1-1.0 MG/DL Aspartate Amino Transf (AST/SGOT) 28 5-34 U/L Alanine Aminotransferase (ALT/SGPT) 31 0-55 U/L Alkaline Phosphatase 81 40-136 U/L Total Protein 8.0 6.4-8.2 GM/DL Albumin 4.8 H 3.2-4.5 GM/DL Lipase 36 8-78 U/L Influenza Type A (RT-PCR) Not Detected Not Detecte Influenza Type B (RT-PCR) Not Detected Not Detecte SARS-CoV-2 RNA (RT-PCR) Not Detected Not Detecte My Orders Orders - JULIO MORRIS MD Ed Iv/Invasive Line Start (04/03/22 13:17) Cbc With Automated Diff (04/03/22 13:17) Comprehensive Metabolic Panel (04/03/22 13:17) Lipase (04/03/22 13:17) Covid 19 Inhouse Test (04/03/22 13:17) Influenza A And B By Pcr (04/03/22 13:17) Isolation Central Supply Req (04/03/22 13:17) Ns Iv 1000 Ml (Sodium Chloride 0.9%) (04/03/22 13:30) Hyoscyamine Sl Tablet (Levsin Sl Tablet) (04/03/22 14:30) Medications Given in ED Current Medications Medications Dose Ordered Sig/Lexii Route Start Time Stop Time Status Last Admin Dose Admin Hyoscyamine Sulfate 0.125 mg ONCE ONCE PO 04/03/22 14:30 04/03/22 14:31 DC 04/03/22 14:54 0.125 MG Vital Signs/I&O 04/03/22 12:11 Temp 36.3 Pulse 62 Resp 20 B/P (MAP) 147/85 (105) Pulse Ox 99 O2 Delivery Room Air Capillary Refill : Less Than 3 Seconds Blood Pressure Mean: 105 Departure Impression Primary Impression: Abdominal pain Qualified Codes: R10.84 - Generalized abdominal pain Additional Impression: Enteritis Disposition: 01 HOME, SELF-CARE Condition: Improved Departure-Patient Inst. Decision time for Depature: 15:20 Referrals: MACY CHENG DO (PCP/Family) Primary Care Physician Patient Instructions: Abdominal Pain, Adult ED Add. Discharge Instructions: Drink plenty of fluids to stay well-hydrated. You can take the nausea medication every 8 hours as needed for upset stomach The Levsin every 6 hours as needed for abdominal cramping. If you develop a fever, persistent vomiting, blood in your stools please come back to the emergency room for reevaluation. Please follow-up next week with your primary care physician. Scripts Ondansetron (Ondansetron Odt) 4 Mg Tab.rapdis 4 MG SL Q8H PRN for NAUSEA/VOMITING, #15 TAB Prov: JULIO MORRIS MD 04/03/22 Hyoscyamine Sulfate (Levsin-Sl) 0.125 Mg Tab.subl 0.125 MG SL Q6H PRN for abdominal cramping, #60 TAB 0 Refills Prov: JULIO MORRIS MD 04/03/22 Copy Copies To 1: MACY CHENG KATHRYN M MD Apr 03, 2022 13:09
[2022-04-03 13:24] LABS: BASOPHILS % (AUTO) 1 % (0-10); EOSINOPHILS # (AUTO) 0.1 10^3/uL (0.0-0.3); EOSINOPHILS % (AUTO) 3 % (0-10); HEMATOCRIT 43 % (35-52); HEMOGLOBIN 14.5 g/dL (11.5-16.0); LYMPHOCYTES % (AUTO) 41 % (12-44); MEAN CORPUSCULAR HEMOGLOBIN 29 pg (25-34); MEAN CORPUSCULAR HGB CONC 33 g/dL (32-36); MEAN CORPUSCULAR VOLUME 86 fL (80-99); MEAN PLATELET VOLUME 10.7 fL (9.0-12.2); MONOCYTES # (AUTO) 0.5 10^3/uL (0.0-1.0); MONOCYTES % (AUTO) 11 % (0-12); NEUTROPHILS # (AUTO) 2.1 10^3/uL (1.8-7.8); NEUTROPHILS % (AUTO) 44 % (42-75); PLATELET COUNT 217 10^3/uL (130-400); WHITE BLOOD COUNT 4.7 10^3/uL (4.3-11.0)
[2022-04-03] MEDS ORDERED: NS IV 1000 ML 1,000 ML IV SCH (13:30)
[2022-04-03 13:38] LABS: ALANINE AMINOTRANSFERASE 31 U/L (0-55); ALBUMIN 4.8 GM/DL (3.2-4.5); ALKALINE PHOSPHATASE 81 U/L (40-136); BILIRUBIN,TOTAL 1.5 MG/DL (0.1-1.0); BUN/CREATININE RATIO 13; CALCIUM 9.5 MG/DL (8.5-10.1); CARBON DIOXIDE 26 MMOL/L (21-32); CHLORIDE 104 MMOL/L (98-107); CREATININE SERUM 0.89 MG/DL (0.60-1.30); GFR ESTIMATED 75; GLUCOSE 87 MG/DL (70-105); LIPASE 36 U/L (8-78); POTASSIUM 3.4 MMOL/L (3.6-5.0); SODIUM 140 MMOL/L (135-145)
[2022-04-03] MEDS ORDERED: HYOSCYAMINE 0.125 MG (LEVSIN) TAB PO ONE (14:30)
[2022-04-03] MEDS ORDERED: ONDA4TAB11 SL (15:23)
[2022-04-03] MEDS ORDERED: HYOS0.1283 SL (15:23)
[2022-04-03] MEDS ORDERED: KETOROLAC 30 MG/ML VIAL IVP ONE (15:30)
[2022-04-03 15:34] VITALS: BP 126/70
== END 2022-04-03 15:35 | disposition home or self-care (01) ==
LOC: EDUNIT# 11:59 → ER 12:01
DX: K52.9 Noninfective gastroenteritis and colitis, unspecified (principal); Z90.49 Acquired absence of other specified parts of digestive tract; Z20.822 Contact with and (suspected) exposure to COVID-19
CPT/HCPCS: 36415; 80053; 83690; 85025; 87636; 99283

== ENCOUNTER → 2023-01-20 | Outpatient (CLI) | payer BC ==
[~2023-01-20] MED LIST changes: +HYOS0.1283 SL; +ONDA4TAB11 SL
--- NOTE | 2023-01-20 08:15 | Diagnostic Imaging Report ---
INDICATION: Routine screening. Comparison is made with prior mammogram of 12/16/2021 and 11/28/2020. 2-D and 3-D bilateral screening mammography was performed with CAD. Both breasts are heterogeneously dense, limiting the sensitivity of mammography. The overall parenchymal pattern is stable. The density in the inferior medial retroareolar left breast is stable. No new mass or malignant-appearing microcalcifications are seen. Axillae are unremarkable. IMPRESSION: No mammographic features suspicious for malignancy are identified. ACR BI-RADS Category 2: Benign findings. Result letter will be mailed to the patient. Note: At least 10% of breast cancer is not imaged by mammography. BI-RADS Category 2 Dictated by: Dictated on workstation # [id number]
== END ==
LOC: RAD 07:45
PROVIDERS: ATTEND Nurse Practitioner
DX: Z12.31 Encounter for screening mammogram for malignant neoplasm of breast (principal)
CPT/HCPCS: 77063; 77067